=== PATIENT | female | born 1975 | race Caucasian/White ===

== ENCOUNTER 2019-02-21 19:23 | Inpatient (IN) | payer OTHER ==
[~2019-02-21] VITALS: Ht 170.2 cm; Wt 95.3 kg
[2019-02-21 19:36] VITALS: BP 156/93
[2019-02-21] MEDS ORDERED: PRILOSEC OTC20 MG PO (19:41)
[2019-02-21] MEDS ORDERED: YAZ 28 TABLET1 EACH PO (19:41)
[2019-02-21 20:12] LABS: ABSOLUTE BASOPHILS 0.1 thou/uL (0.0-0.2); ABSOLUTE EOSINOPHILS 0.2 thou/uL (0.0-0.7); ABSOLUTE MONOCYTES 0.9 thou/uL (0.0-1.2); ABSOLUTE NEUTROPHILS 9.9 thou/uL (1.6-8.1); BASOPHILS 0.8 %; EOSINOPHILS 1.4 %; HEMATOCRIT 38.7 % (37.0-47.0); HEMOGLOBIN 12.8 gm/dL (12.0-15.0); LYMPHOCYTES 20.9 %; MCH 29.8 pg (26.0-34.0); MCV 90.2 fL (80.0-100.0); MONOCYTES 6.6 %; MPV 7.2 fl. (7.2-11.1); NUCLEATED RBCS 0 /100WBC; PLATELET COUNT* 372 thou/uL (150-400); POLYS 70.3 %; RBC 4.29 mil/uL (4.20-5.00); RDW-CV 13.4 % (10.5-14.5); WBC 14.1 thou/uL (4.0-11.0)
[2019-02-21 20:21] LABS: ANION GAP 11 mmol/L (7-16); BUN 15 mg/dL (7-18); CALCIUM 9.3 mg/dL (8.5-10.1); CHLORIDE 102 mmol/L (98-107); CO2 25 mmol/L (21-32); CREATININE 0.9 mg/dL (0.6-1.3); GLUCOSE 102 mg/dL (70-99); POTASSIUM 3.5 mmol/L (3.5-5.1); SODIUM 138 mmol/L (136-145)
[2019-02-21 20:25] LABS: URINE BILIRUBIN NEGATIVE (Negative); URINE BLOOD TRACE (Negative); URINE CLARITY CLEAR; URINE COLOR YELLOW; URINE GLUCOSE-RANDOM NEGATIVE (Negative); URINE KETONES NEGATIVE (Negative); URINE LEUKOCYTES-REFLEX NEGATIVE (Negative); URINE NITRITE-REFLEX NEGATIVE (Negative); URINE PROTEIN NEGATIVE (Negative); URINE SPECIFIC GRAVITY 1.015 (1.005-1.030); URINE UROBILINOGEN 0.2 E.U./dl (0.2-1.0)
[2019-02-21 20:30] LABS: ALBUMIN 3.9 g/dL (3.4-5.0); ALKALINE PHOSPHATASE 94 U/L (46-116); LIPASE 237 U/L (73-393); SGOT 12 U/L (15-37); SGPT 22 U/L (30-65); TOTAL BILIRUBIN 0.2 mg/dL (<0.1-1.0); TOTAL PROTEIN 7.7 g/dL (6.4-8.2); TROPONIN-I LEVEL <0.06 ng/mL (<0.06)
[2019-02-21 23:15] VITALS: BP 140/53
[2019-02-21 23:45] VITALS: BP 129/91
[2019-02-22 07:30] VITALS: BP 131/76
[2019-02-22 10:23] VITALS: BP 131/76
--- NOTE | 2019-02-22 11:49 | EKG ---
[place] [address] ELECTROCARDIOGRAM REPORT Name: DENY CAMPOS Room: [address] IN [facility]#: [id number] Admission: 02/21/19 Attend Phys: Dominga Bautista MD Discharge: Date of : 75 Report #: [id number] THIS REPORT FOR: //name// [facility] ED Test Date: 2019-02-21 Test Time: 20:13:07 Pat Name: DENY CAMPOS Department: Room: [facility] Gender: [employer]: AJ : 1975 Requested By: Pascual Dahl Order Number: [id number] MD: Anselmo Yarbrough Measurements Intervals [place] Rate: 74 P: -2 AR: 124 QRS: 2 QRSD: 100 T: 17 QT: 396 QTc: 440 Interpretive Statements Sinus rhythm Left ventricular hypertrophy No previous ECG available for comparison Electronically Signed On 02-22-2019 11:49:36 CDT by Anselmo Yarbrough [email or web address] <ELECTRONICALLY SIGNED> By: Anselmo Yarbrough MD, [facility] 02/22/19 1149 12 12 Anselmo Yarbrough MD, FACC /EPI
--- NOTE | 2019-02-22 12:45 | NUR ---
ASSUMED CARE OF PATIENT AT APPROX 0730. ALERT AND ORIENTED X4. ASSESSMENT COMPLETED AND CHARTED. VSS ON ROOM AIR. NO COMPLAINTS OF PAIN, NAUSEA, OR SOA. PATIENT DISCHARGED AT 1220 WITH ALL PERSONAL BELONGINGS AND DISCHARGE INFORMATION.
== END 2019-02-22 12:20 | disposition home or self-care (01) | DRG 384 ==
LOC: M.ERS 19:23 → M.TBA-ER 22:08 → M.ORTHSURG 22:08
PROVIDERS: Family Medicine; ADMIT Internal Medicine
DX: K25.9 Gastric ulcer, unspecified as acute or chronic, without hemorrhage or perforation (principal); K29.70 Gastritis, unspecified, without bleeding; K44.9 Diaphragmatic hernia without obstruction or gangrene; K81.9 Cholecystitis, unspecified; K21.9 Gastro-esophageal reflux disease without esophagitis; E66.9 Obesity, unspecified; D72.829 Elevated white blood cell count, unspecified; Z88.0 Allergy status to penicillin; Z88.2 Allergy status to sulfonamides; Z68.32 Body mass index [BMI] 32.0-32.9, adult; Z79.899 Other long term (current) drug therapy